=== PATIENT | male | born 1945 | race Caucasian/White ===

== ENCOUNTER 2021-11-22 22:10 | Inpatient (IN) | payer OTHER, MEDICAID ==
[~2021-11-22] VITALS: Ht 180.3 cm; Wt 68.0 kg
[2021-11-22 22:16] VITALS: BP_SYST 138
[2021-11-22] MEDS ORDERED: MORPHINE 2 MG/ML INJ. SYRINGE IVP ONE (22:45)
[2021-11-22] MEDS ORDERED: ONDANSETRON HCL 4 MG/2 ML VIAL IVP ONE (22:45)
[2021-11-22] MEDS ORDERED: NACL 0.9% 1,000 ML IV ONE (22:45)
[2021-11-22] MEDS ORDERED: cefTRIAXone 1 GM in D5W 50 ML IV ONE (23:15)
[2021-11-22 23:17] LABS: BASOPHILS % (AUTO) 0.1 % (0.0-2.0); EOSINOPHILS # (AUTO) 0.1 K/uL (0.0-0.4); EOSINOPHILS % (AUTO) 0.4 % (0.0-4.0); HEMATOCRIT 34.1 % (36-54); HEMOGLOBIN 11.2 g/dL (14.0-18.0); LYMPHOCYTES # (AUTO) 1.2 K/uL (1.0-5.5); MEAN CORPUSCULAR HEMOGLOBIN 32 pg (27-31); MEAN CORPUSCULAR HGB CONC 33 % (32-36); MEAN CORPUSCULAR VOLUME 96 fL (79.0-98.0); MONOCYTES # (AUTO) 0.8 K/uL (0.0-1.0); MONOCYTES % (AUTO) 4.1 % (1.7-9.3); NEUTROPHILS # (AUTO) 17.3 K/uL (1.8-7.7); NEUTROPHILS % (AUTO) 89.4 % (40.0-70.0); PLATELET COUNT (AUTO) 189 K/uL (130-430); RED BLOOD CELL COUNT(AUTO) 3.55 MIL/uL (4.2-6.2); RED CELL DISTRIBUTION WIDTH 14.4 % (9.0-15.0); WHITE BLOOD COUNT (AUTO) 19.4 K/uL (4.8-10.8)
[2021-11-22 23:38] LABS: ANION GAP 15 (5-15); CALCIUM 8.4 mg/dL (8.4-11.0); CHLORIDE 105 mmol/L (98-107); CREATININE 1.45 mg/dL (0.55-1.30); GLUCOSE 166 mg/dL (70-99); POTASSIUM 3.3 mmol/L (3.5-5.1); SODIUM SERUM 142 mmol/L (136-145); UREA NITROGEN, BLOOD 38 mg/dL (8-21)
[2021-11-22 23:43] LABS: ALANINE AMINOTRANSFERASE 12 U/L (12-78); ALBUMIN 3.3 g/dL (3.4-4.8); ASPARTATE AMINOTRANSFERASE 13 U/L (10-37); LIPASE 33 U/L (73-393); TOTAL BILIRUBIN 0.4 mg/dL (0.0-1.0)
[2021-11-23] VITALS (7 sets, daily range): BP systolic 129–150
[2021-11-23 00:44] LABS: BILIRUBIN,URINE 1+ (NEGATIVE); BLOOD, URINE 3+ (NEGATIVE); CLARITY/URINE TURBID (CLEAR); COLOR,URINE YELLOW (YELLOW); GLUCOSE,URINE NEGATIVE (NEGATIVE); KETONES,URINE TRACE (NEGATIVE); LEUKOCYTE ESTERASE ,URINE 2+ (NEGATIVE); NITRITE, URINE NEGATIVE (NEGATIVE); PH,URINE 5.5 (5.0-8.0); PROTEIN URINE 2+ (NEGATIVE); UROBILINOGEN,URINE 0.2 (0.2-1.0)
[2021-11-23] MEDS ORDERED: cefTRIAXone 1 GM VIAL ONE (00:47)
[2021-11-23 00:58] LABS: BACTERIA,URINE MODERATE /HPF (None Seen); RBC,URINE >100 /HPF (0-3); WBC,URINE >100 /HPF (0-3)
[2021-11-23] MEDS ORDERED: SODIUM PHOSPHATE,MONO-DIBASIC 133 ML ENEMA RC ONE (01:15)
[2021-11-23] MEDS ORDERED: NACL 0.9% 1,000 ML IV ONE (01:15)
[2021-11-23] MEDS ORDERED: PIPERACILLIN/TAZO 3.375 GM in NS 50 ML IV ONE (01:15)
[2021-11-23] MEDS ORDERED: ONDANSETRON HCL 4 MG/2 ML VIAL IVP PRN ×2 (01:30→02:00)
[2021-11-23] MEDS ORDERED: MORPHINE 4 MG INJ. 4 MG/ML VIAL IVP PRN (01:30)
[2021-11-23] MEDS ORDERED: PIPERACILLIN/TAZOBACTAM 4.5 GM/VIAL (ZOSYN) IV ONE ×2 (01:41→06:28)
[2021-11-23] MEDS ORDERED: PIPERACILLIN/TAZO 4.5 GM in NS 100 ML IV SCH ×2 (01:45→06:00)
[2021-11-23] MEDS: LR 1,000 ML IV SCH ×2 (02:19→06:57)
[2021-11-23] MEDS: PIPERACILLIN/TAZO 4.5 GM in NS 100 ML IV SCH ×4 (02:19→22:26)
[2021-11-23] MEDS: MORPHINE 4 MG INJ. 4 MG/ML VIAL IVP PRN ×5 (02:20→22:37)
[2021-11-23] MEDS ORDERED: CLON0.1T PO (05:24)
[2021-11-23] MEDS ORDERED: GASTROGRAFIN 120 ML ONE (13:07)
[2021-11-24 00:37] VITALS: BP_SYST 134
[2021-11-24] MEDS: LR 1,000 ML IV SCH ×2 (02:35→15:30)
[2021-11-24] MEDS: MORPHINE 4 MG INJ. 4 MG/ML VIAL IVP PRN ×5 (02:44→22:02)
[2021-11-24] MEDS: PIPERACILLIN/TAZO 4.5 GM in NS 100 ML IV SCH ×3 (06:43→22:04)
[2021-11-24 08:00] VITALS: BP_SYST 138
[2021-11-24 08:22] LABS: BASOPHILS % (AUTO) 0.2 % (0.0-2.0); EOSINOPHILS # (AUTO) 0.3 K/uL (0.0-0.4); EOSINOPHILS % (AUTO) 4.1 % (0.0-4.0); HEMATOCRIT 26.4 % (36-54); HEMOGLOBIN 8.7 g/dL (14.0-18.0); LYMPHOCYTES # (AUTO) 0.9 K/uL (1.0-5.5); LYMPHOCYTES % (AUTO) 10.2 % (20.5-51.5); MEAN CORPUSCULAR HEMOGLOBIN 32 pg (27-31); MEAN CORPUSCULAR HGB CONC 33 % (32-36); MEAN CORPUSCULAR VOLUME 96 fL (79.0-98.0); MONOCYTES # (AUTO) 0.6 K/uL (0.0-1.0); MONOCYTES % (AUTO) 6.8 % (1.7-9.3); NEUTROPHILS # (AUTO) 6.7 K/uL (1.8-7.7); NEUTROPHILS % (AUTO) 78.7 % (40.0-70.0); PLATELET COUNT (AUTO) 114 K/uL (130-430); RED BLOOD CELL COUNT(AUTO) 2.74 MIL/uL (4.2-6.2); RED CELL DISTRIBUTION WIDTH 14.7 % (9.0-15.0); WHITE BLOOD COUNT (AUTO) 8.5 K/uL (4.8-10.8)
[2021-11-24 08:44] LABS: ALANINE AMINOTRANSFERASE 4 U/L (12-78); ALBUMIN 2.2 g/dL (3.4-4.8); ANION GAP 10 (5-15); ASPARTATE AMINOTRANSFERASE 12 U/L (10-37); CALCIUM 7.4 mg/dL (8.4-11.0); CHLORIDE 112 mmol/L (98-107); CREATININE 1.06 mg/dL (0.55-1.30); GLUCOSE 103 mg/dL (70-99); POTASSIUM 3.2 mmol/L (3.5-5.1); SODIUM SERUM 145 mmol/L (136-145); TOTAL BILIRUBIN 0.2 mg/dL (0.0-1.0); UREA NITROGEN, BLOOD 22 mg/dL (8-21)
[2021-11-24 11:30] VITALS: BP_SYST 133
[2021-11-24 16:00] VITALS: BP_SYST 128
[2021-11-24 19:50] VITALS: BP_SYST 139
[2021-11-24] MEDS ORDERED: KCL 40 mEq in 100 mL (PREMIX) 100 ML IV ONE (21:15)
[2021-11-24 23:48] VITALS: BP_SYST 150
[2021-11-25] MEDS: MORPHINE 4 MG INJ. 4 MG/ML VIAL IVP PRN ×6 (02:12→22:40)
[2021-11-25] MEDS: LR 1,000 ML IV SCH ×2 (04:32→16:02)
[2021-11-25] MEDS: PIPERACILLIN/TAZO 4.5 GM in NS 100 ML IV SCH ×3 (06:13→22:34)
[2021-11-25 08:00] VITALS: BP_SYST 139
[2021-11-25 16:05] VITALS: BP_SYST 151
[2021-11-25 22:30] VITALS: BP_SYST 140
[2021-11-26 02:30] VITALS: BP_SYST 147
[2021-11-26] MEDS: MORPHINE 4 MG INJ. 4 MG/ML VIAL IVP PRN ×6 (02:43→22:36)
[2021-11-26] MEDS: LR 1,000 ML IV SCH ×2 (05:00→18:03)
[2021-11-26] MEDS: PIPERACILLIN/TAZO 4.5 GM in NS 100 ML IV SCH ×3 (06:30→22:08)
[2021-11-26 06:42] VITALS: BP_SYST 146
[2021-11-26] MEDS: POLYETHYLENE GLYCOL 3350, 17 GM/ POWD.PACK PO SCH (08:12)
[2021-11-26 08:16] VITALS: BP_SYST 153
[2021-11-26 12:05] VITALS: BP_SYST 148
[2021-11-26 15:00] VITALS: BP_SYST 143
[2021-11-26 20:00] VITALS: BP_SYST 136
[2021-11-27] MEDS: MORPHINE 4 MG INJ. 4 MG/ML VIAL IVP PRN ×3 (02:52→12:35)
[2021-11-27 04:13] VITALS: BP_SYST 132
[2021-11-27] MEDS: LR 1,000 ML IV SCH (06:00)
[2021-11-27] MEDS: PIPERACILLIN/TAZO 4.5 GM in NS 100 ML IV SCH ×2 (06:00→14:00)
[2021-11-27] MEDS: POLYETHYLENE GLYCOL 3350, 17 GM/ POWD.PACK PO SCH (08:34)
[2021-11-27 12:00] VITALS: BP_SYST 139
[2021-11-27 14:17] VITALS: BP_SYST 139
[2021-11-27] MEDS ORDERED: PIPE4.5F2 IV (15:00)
== END 2021-11-27 13:50 | DRG 871 ==
LOC: SED 22:10 → STU 11-23 01:53 → SMU 11-26 10:00
PROVIDERS: ADMIT Family Medicine; ATTEND Family Medicine
DX: A41.9 Sepsis, unspecified organism (principal); N17.0 Acute kidney failure with tubular necrosis; K56.609 Unspecified intestinal obstruction, unspecified as to partial versus complete obstruction; G89.4 Chronic pain syndrome; K80.80 Other cholelithiasis without obstruction; E11.21 Type 2 diabetes mellitus with diabetic nephropathy; N18.9 Chronic kidney disease, unspecified; J44.9 Chronic obstructive pulmonary disease, unspecified; E11.40 Type 2 diabetes mellitus with diabetic neuropathy, unspecified; E11.51 Type 2 diabetes mellitus with diabetic peripheral angiopathy without gangrene; Z20.822 Contact with and (suspected) exposure to COVID-19; Z86.73 Personal history of transient ischemic attack (TIA), and cerebral infarction without residual deficits; Z89.611 Acquired absence of right leg above knee
CPT/HCPCS: 36415; 74250-TC; 76376; 78226; 80053; 81000; 83605; 83690; 85025; 87040; 87081; 87086; 96361; 96365; 96375; 99285; A9537; G0378; J0696; J2270; J2405; J2543; J3480; Q9963